=== PATIENT | male | born 1965 | race Caucasian/White ===

== ENCOUNTER 2017-10-31 01:47 | Emergency (ER) | payer OTHER ==
[~2017-10-31] VITALS: Ht 177.8 cm; Wt 105.7 kg
[~2017-10-31 01:47] MED LIST: ALLOPURINOL300 M1 FT; FENOFIBRIC ACI135 MG PO; LOSARTAN POTAS100 MG PO; MEDROL 4MG. DOSE4 MG PO; PROMETHAZINE D473 ML PO; TESSALON PERLE100 MG PO; ZITHROMAX Z PA250 MG PO
--- NOTE | 2017-10-31 02:08 | Emergency Room Report ---
History of Present Illness Time Seen by MD Dobbs Presenting Problem in Triage Pt arrived:Walked Presenting Problem:STOMACH/BACK PAIN. SHORTNESS OF BREATH Onset of symptoms date/time:10/30/1701/15/2200 or onset unknown for: Treatment Prior to Arrival: [employer] Provided by: Sepsis Risk Assessment: Temp: 97.7 B/P: 154/89 MAP: 110 Pulse: 69 Resp: 18 Recent fever? N Clinical Suspician of Infection? N Mental Status: 1 - Regular (Normal Baseline) Sepsis Risk:Low Sepsis Risk Have you (or family members/close friends) recently traveled outside the [place]? N If Yes, where/when: Have you had exposure to infectious disease within the past month? N TB? Other? Specify: Source patient, RN notes reviewed, old records Exam Limitations no limitations Comment lower back pain with no fever/rash or trauma and abd pain and has feeling of sob w/o chest pain Cardiac Chest Pain Chest pain indicative of cardiac No Timing/Duration this evening Severity moderate ALLERGIES Coded Allergies: No Known Allergies (10/31/17) Home Medications Reported Medications Allopurinol 300 MG FT DAILY #30 Losartan Potassium (Losartan 100MG) 100 MG PO DAILY #30 History Medical History General CAD? No Angina: No [place]: No Hypertension? Yes Hyperlipidemia? Yes CHF? No DVT? No PE? No COPD? No Asthma? No Anemia? No GERD? No Gastric ulcers? No GI Bleed? No Hernia? No Thyroid Problems? No Hypothyroidism? No CVA? No Seizures? No Diabetes? No Renal Insuffiency? No End Stage Renal Disease? No UTI? No Stones? No BPH? No GB Disease: No Nephritic Syndrome? No Asplenia? No Hepatitis? No Sickle Cell Disease? No Arthritis? No Migraines? No Cataracts? No Glaucoma? No MRSA? No HIV? No TB? No Anxiety? No Depression? No Cancer? 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 Respiratory denies cough, denies shortness of breath, denies wheezing Cardiovascular denies chest pain, denies palpitations, denies syncope Gastrointestinal see HPI, abdominal pain, denies diarrhea, denies vomiting, other Genitourinary denies: dysuria, frequency, hesitancy, hematuria, scrotal/testicular pain. Musculoskeletal back pain, denies joint pain, denies joint swelling, denies neck pain Skin denies rash Psychiatric/Neurological denies headache, denies seizure Physical Exam Vital Signs Vital Signs Date Time Temp Pulse Resp B/P Pulse O2 O2 Flow FiO2 Ox Delivery Rate 10/31 336 98.6 60 18 145/77 92 10/31 0330 18 10/31 0154 97.7 69 18 154/89 98 - WBC >12,000 or <4,000 or 10% bands? 2 or more SIRS Criteria Met? B/P:145/77 MAP:110 Creatinine >2.0? UA output<0.5ml/kg/hr for 2 hrs? Platelet count >100,000? Lactate >2.0mmol/1? INR >1.2 or PTT > than 60 sec? Evidence of Organ Dysfunction? Provider documented clinical suspician of infection? N Sepsis Criteria Count: 0 Sepsis Risk: Low Sepsis Risk General Appearance no apparent distress Eye Exam - bilateral eye PERRL, bilateral eye EOMI Ear, Nose, Throat normal ENT inspection Neck supple Respiratory Status No: respiratory distress. Lung Sounds bilateral: lungs clear. 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 No Results/Orders Laboratory Tests 10/31/17239: B-Natriuretic Peptide 12 10/31/17239: Sodium 136, Potassium 4.3, Chloride 102, Carbon Dioxide 24, BUN 26 H, Creatinine 0.9, Estimated Creat Clear 140, Estimated GFR (MDRD) 88, Glucose 127 H, Calcium 8.9, Total Bilirubin 0.4, AST 35, ALT 41, Alkaline Phosphatase 104, Creatine Kinase 101, CK-MB (CK-2) Rel Index 0.6, CK and CKMB Interp 0.6, Troponin I < 0.02, Total Protein 7.5, Albumin 3.9, Globulin 3.6 H, Albumin/ Globulin Ratio 1.1, Amylase 47, Lipase 135, WBC 7.2, RBC 5.06, Hgb 15.5, Hct 45.0, MCV 88.9, RDW 12.5, Plt Count 262, MPV 8.7, Gran % 65.3, Gran # 4.7, Lymphocytes % 23.9, Monocytes % 7.4, Eosinophils % 2.7, Basophils % 0.7, Lymphocytes # 1.7, Monocytes # 0.5, Eosinophils # 0.2, Basophils # 0.1, PUBS MCHC 34.4, MCH 30.6 10/31/17 0215: Urine Color YELLOW, Urine Appearance CLEAR, Urine pH 6.0, Ur Specific [place] 1.025, Urine Protein NEGATIVE, Urine Ketones NEGATIVE, Urine Blood 1+ H, Urine Nitrate NEGATIVE, Urine Bilirubin NEGATIVE, Urine Urobilinogen 0.2, Ur Leukocyte Esterase NEGATIVE, Urine RBC 5-10, Ur Squamous Epith Cells OCC, Amorphous Sediment TRACE, Urine Glucose NEGATIVE Current Medication Orders Sig/Brandan Start time Last Medication Dose Route Stop Time Status Admin Ondansetron HCl 0 .STK-MED ONE 10/31 351 DC .ROUTE Ceftriaxone Sodium 0 .STK-MED ONE 10/31 035 DC .ROUTE Sodium Chloride 50 ML .STK-MED ONE 10/31 349 DC IV Ceftriaxone Sodium 1 GM ONCE ONE 10/31 345 DC 10/31 Sodium Chloride 50 ML IV 10/31 414 0355 Ondansetron HCl 4 MG ONCE ONE 10/31 345 DC 10/31 IV 10/31 034 0355 Ketorolac 30 MG ONCE ONE 10/31 033 DC 10/31 Tromethamine IV 10/31 331 0330 Ketorolac 0 .STK-MED ONE 10/31 328 DC Tromethamine .ROUTE Sodium Chloride 10 ML PRN PRN 10/31 0200 AC IV 11/01 0155 Orders Procedure Date/time Status DIET-NOTHING BY MOUTH 10/31 B Active BRAIN NATRIURETIC PEPTIDE 10/[address] ABD & PELVIS W/O CONTRAST 10/31 020 Active ELECTROCARDIOGRAM REQUEST 10/[address] SCAN REQ 10/31 157 Active CHEST-AP VIEW ONLY 10/31 157 Active IV SALINE LOCK 10/31 157 Active URINALYSIS/COMPLETE 10/31 157 Complete LIPASE 10/31 157 Complete COMPLETE METABOLIC PANEL 10/31 157 Complete CBC WITH AUTO DIFF 10/31 157 Complete CARDIAC ENZYMES 10/31 157 Complete AMYLASE 10/31 157 Complete 12 LEAD EKG-BESSON (INITIAL) 10/31 UNK Active CM/EKG CM/oil drilling engineer Rhythm Normal Sinus Rhythm EKG no evid. of ischemic chgs XRAY/CT/US XRAY/CT/US 1 XRAY chest XR interpretation by reviewed by me Xray Results normal/NAD XRAY/CT/US 2 CT abdomen, pelvis CT interpretation by discussed w/radiologist Time results known: 0337 CT Results normal/NAD Departure Departure Time of Disposition 034 Disposition DC Home or Self Care(routine) Clinical Impression Primary Impression: Back pain Qualifiers: Back pain location: low back pain Chronicity: acute Back pain laterality: bilateral Sciatica presence: without sciatica Qualified Code: M54.5 - Low back pain Condition STABLE Referrals Moreno Marquis MD (Family) Patient Instructions DI for Low Back Pain Additional Instructions use meds and see pcp for follow up Discharge Counseling Counseled pt/family regarding diagnosis, test results, medications/RX, follow up needs Prescriptions Current Visit Scripts Ciprofloxacin HCl (Cipro 500MG TAB) 500 MG PO BID #14 TAB ED Critical Care Critical Care No at 0434
--- OUTSIDE RECORDS SUMMARY | 2017-10-31 02:18 | External Medical Summary Rpt | CCD ---
Author Author , MARIA TERESA CUELLO Address Unknown Phone [email or web address] Purpose Continuity of Care Document - through 2016
--- OUTSIDE RECORDS SUMMARY | 2017-10-31 02:18 | External Medical Summary Rpt | CCD ---
Author Author [employer] Organization [employer] Address Unknown Phone Unavailable Purpose Continuity of Care Document - through 2016
--- OUTSIDE RECORDS SUMMARY | 2017-10-31 02:18 | External Medical Summary Rpt | CCD ---
Author Author , MARIA TERESA CUELLO Address Unknown Phone [email or web address] Purpose Continuity of Care Document - through 2016
--- OUTSIDE RECORDS SUMMARY | 2017-10-31 02:19 | External Medical Summary Rpt ---
Author Author [employer]asi, [employer] Organization [employer] Address Unknown Phone Unavailable
--- OUTSIDE RECORDS SUMMARY | 2017-10-31 02:19 | External Medical Summary Rpt | CCD ---
Demographics Preferred Language Wallisian Marital Status Unknown Orthodoxy Affiliation Unknown Race Unknown Ethnic Group Unknown Author Author , MARIA TERESA CUELLO Address Unknown Phone maria Immunization Unable to retrieve immunization data due to connection failure with Immunization Registry. Please try again later.
--- OUTSIDE RECORDS SUMMARY | 2017-10-31 02:19 | External Medical Summary Rpt | CCD ---
Demographics Preferred Language Haitian Marital Status Unknown Spiritism Affiliation Unknown Race Unknown Ethnic Group Unknown Author Author , MARIA TERESA CUELLO Address Unknown Phone maria Immunization Unable to retrieve immunization data due to connection failure with Immunization Registry. Please try again later.
[2017-10-31 02:31] LABS: URINE BILIRUBIN - DIPSTICK NEGATIVE (NEG); URINE BLOOD 1+ (NEG)
[2017-10-31 02:33] LABS: URINE SQUAMOUS CELLS OCC #/hpf (OCC)
[2017-10-31 02:50] LABS: HEMOGLOBIN 15.5 g/dL (14.1-18.0); LYMPH # 1.7 K/mm3 (0.7-4.5); LYMPH % 23.9 % (10-50)
[2017-10-31 03:17] LABS: BUN 26 mg/dL (7-18)
[2017-10-31 03:18] LABS: GFR (ESTIMATED) 88 ML/MIN (>60)
[2017-10-31] MEDS ORDERED: CIPRO 500MG TA500 MG PO (04:34)
[2017-10-31 04:48] VITALS: BP 144/73
--- NOTE | 2017-10-31 10:21 | RADIOLOGY REPORT PS360 ---
CT ABD PELVIS W/O CONTRAST Ordering Physician: Gerry Alcantar MD Patient Age: 52 years: Male HISTORY: ABD PAIN nausea. Low back pain TECHNIQUE: Helical CT scanning performed the abdomen pelvis with no oral or IV contrast utilized. Sagittal coronal reconstruction CT workstation. COMPARISON :No previous CT abdomen but there is a previous CT chest utilized 2009 FINDINGS Lung bases, lungs clear with nothing definitely acute. Heart upper normal size generous adjacent fat pad . Abdomen.2/pelvis. Lack of oral and IV contrast decreases sensitivity Liver. Diffuse fatty changes but no focal lesions of significance. Areas slight increased density just above the gallbladder fossa-suspect reflect of focal areas of less fatty change-particularly given its linear appearance on sagittal reconstruction view here. No biliary ductal dilatation. Gallbladder,. Tiny 3 mm stone posterior gallbladder axial slice 48 coronal image 40 sagittal 44. Towards neck of gallbladder.. Gallbladder generous size and estimate 9.5-up to nearly 10 cm in maximum length. Consider gallbladder ultrasound of right upper quadrant symptoms Pancreas. Unremarkable on this noncontrast study. Kidneys. No urinary tract obstruction. No discrete calculi. Minor stranding about both kidneys reflecting some minor chronic changes Empty bladder appears satisfactory generous ureteral tract anteriorly but not of significance. Normal size Prostate with minimal central calcification. Adrenals unremarkable. No retroperitoneal nor mesenteric nor pelvic adenopathy GI tract. No bowel dilatation or obstruction. Moderate distended food filled stomach . Terminal ileum appears satisfactory. Appendix appears normal. Moderate stool right colon. Minimal stool left colon. . There is a small left inguinal hernia containing fat along with small knuckle proximal sigmoid colon which extends into this modest hernia sac. Only question some very subtle some slight fat stranding about this area but overall unimpressive. Warrants clinical correlation. Does not appear to be incarcerated nor strangulated & there is no bowel dilatation proximal to this point but could be a site for tenderness and abdominal pain. Upper normal wall thickness at the descending colon leading to this area. IMPRESSION: ------- 1. No prominent acute findings abdomen or pelvis. 2. *Small Left inguinal hernia- containing mainly fat along with small knuckle of nondilated sigmoid colon. Only question some very subtle pericolic fat stranding here but no significant appearing inflammation.. Does not appear to be significant incarceration.-Requires clinical correlation. No resulting proximal obstruction 3*cholelithiasis. Small gallstone towards neck gallbladder. Mildly distended gallbladder. Consider gallbladder ultrasound 4. Prominent diffuse Fatty changes liver. . (Send Report to Amina: Minor VRC discrepancy. Cholelithiasis not mentioned. Left inguinal hernia not mentioned))
--- NOTE | 2017-10-31 11:02 | RADIOLOGY REPORT PS360 ---
CHEST-AP VIEW ONLY Ordering physician: Gerry Alcantar MD Age: 52 years Male INDICATION: chest symptomssob PROCEDURE: CHEST-AP VIEW ONLY FINDINGS: Previous chest film from 11/18/2014 used for comparison. Also a CT abdomen from today which includes lung bases utilized. There is increased density at the left lung base on the plain film but I suspect this reflects suboptimal inspiration along with the anterior fat pad extending to the left, as seen on today's CT abdomen. There may be some basilar atelectasis on this chest film which is less evident on the CT abdomen performed at nearly the same time heart upper normal in size. Laura and mediastinal structures otherwise appears satisfactory. Pulmonary vascularity is upper normal. Perhaps minor vascular engorgement but no overt CHF No pneumothorax. No pleural effusion. Chest wall unremarkable.. IMPRESSION ----- Nothing definitely acute when reviewed in conjunction with the with corresponding CT abdomen from today Crowding of markings bilaterally most likely reflecting optimal inspiration on this CXR.. Slight increased density left lung base likely reflects the generous anterior fat pad seen on today's CT thorax with some slight basilar atelectasis bilaterally on this particular study. Again Nothing definitely acute
== END 2017-10-31 04:49 | disposition home or self-care (01) ==
LOC: ER 01:47
PROVIDERS: Emergency Medicine
DX: M54.5 Low back pain (principal); I10 Essential (primary) hypertension; E78.5 Hyperlipidemia, unspecified
CPT/HCPCS: J2405

== ENCOUNTER → 2017-11-08 | Outpatient (CLI) | payer OTHER ==
[~2017-11-08] MED LIST changes: +CIPRO 500MG TA500 MG PO
--- NOTE | 2017-11-08 10:20 | RADIOLOGY REPORT PS360 ---
US RUQ-(ABD LTD)1ORGAN/QUAD/FU HISTORY: ABD PAIN,CALCULUS OF GALLBLADDER ORDERING PHYSICIAN: Moreno Marquis MD PATIENT AGE: 52 years COMPARISON: None FINDINGS: PANCREAS:Unremarkable. No obvious mass or abnormal fluid collection. No ductal dilatation LIVER:Diffuse hepatic steatosis. No focal liver lesion evident. No biliary dilatation. RIGHT KIDNEY:Unremarkable. Normal size and echogenicity. No hydronephrosis GALLBLADDER:There are multiple small gallstones. No gallbladder wall thickening, pericholecystic fluid, or biliary dilatation. Common bile duct is normal at 3 mm. IMPRESSION: Cholelithiasis
== END ==
LOC: RAD 08:41
DX: R10.84 Generalized abdominal pain (principal); K80.20 Calculus of gallbladder without cholecystitis without obstruction